=== PATIENT | female | born 1995 | race Two or more races ===

== ENCOUNTER 2022-05-20 10:43 | Inpatient (IN) | payer OTHER ==
[~2022-05-20] VITALS: Ht 160 cm; Wt 87.3 kg
[2022-05-20] MEDS ORDERED: ONDANSETRON HCL 4 MG/2 ML VIAL IV ONE (11:30)
[2022-05-20] MEDS ORDERED: PANTOPRAZOLE 40 MG/10 ML VIAL INJ IV ONE (11:30)
[2022-05-20] MEDS ORDERED: SODIUM CHLORIDE 0.9% 1,000 ML IVB ONE (11:30)
[2022-05-20] MEDS ORDERED: MORPHINE SULFATE 4 MG/ML SYR/VIAL IV ONE (11:30)
[2022-05-20 11:47] LABS: Hematocrit 41.3 % (36.0-46.0); Hemoglobin 14.1 g/dL (12.2-16.2); Mean Corpuscular Hemoglobin 32.2 pg (28.0-32.0); Mean Corpuscular Hgb Conc. 34.1 g/dL (32.0-36.0); Mean Corpuscular Volume 94.2 fL (80.0-100.0); Red Blood Cells 4.38 10^6/uL (4.0-5.20); Red Cell Distribution Width 12.5 % (11.8-14.3); White Blood Cell 8.1 10^3/uL (4.4-10.8)
[2022-05-20 12:05] LABS: Albumin 4.2 g/dL (3.4-5.0); Calcium 9.4 mg/dL (8.5-10.1); Magnesium 2.2 mg/dL (1.6-2.6); Potassium 3.7 mmol/L (3.5-5.1)
[2022-05-20 12:08] LABS: BUN/Creatinine Ratio 26.6; Bilirubin, Total 0.3 mg/dL (0.2-1.0); Total Protein 7.8 g/dL (6.4-8.2)
[2022-05-20 12:10] LABS: Basophils % (manual) 0 (0.0-2.0); Blast Cells 0; Metamyelocytes % 0; Myelocytes % 0; Promyelocytes % 0; Reactive Lymphocytes 0
[2022-05-20 12:19] LABS: Urine Bacteria NONE SEEN /hpf (None Seen); Urine Blood 1+ /uL (Negative); Urine Mucus FEW (None Seen); Urine Specific Gravity 1.018 (1.001-1.035); Urine WBC 2 /hpf (0 - 5)
[2022-05-20 14:03] LABS: Band Neutrophils % (manual) 4; Eosinophils % (manual) 2 (0-7); Lymphocytes % (manual) 25 (10.0-50.0); Monocytes % (manual) 13 (0-12)
[2022-05-20] MEDS ORDERED: ONDANSETRON HCL 4 MG/2 ML VIAL IV PRN (16:45)
[2022-05-20] MEDS ORDERED: DOCUSATE SOD 100 MG CAP PO PRN (16:45)
[2022-05-20] MEDS: SODIUM CHLORIDE 0.9% 1,000 ML IV SCH (19:45)
[2022-05-20] MEDS ORDERED: hydrALAZINE HCL 20 MG/ML VL IV PRN (19:45)
[2022-05-20] MEDS: cefOXitin 2GM/100ML 100 ML IV SCH (21:49)
[2022-05-20] MEDS ORDERED: ATORVASTATIN 20 MG TAB PO SCH (22:00)
[2022-05-20] MEDS: MORPHINE SULFATE INJ 2 MG/ml SYRG IV PRN (23:08)
[2022-05-21] MEDS: SODIUM CHLORIDE 0.9% 1,000 ML IV SCH ×3 (01:05→22:23)
[2022-05-21 01:27] VITALS: BP 152/94
[2022-05-21 04:00] VITALS: BP 125/74
[2022-05-21] MEDS: cefOXitin 2GM/100ML 100 ML IV SCH ×3 (06:12→22:21)
[2022-05-21 06:14] LABS: INR 1.07 (0.9-1.15); Partial Thromboplastin Time 31.4 sec (24.6-33.4)
[2022-05-21 06:16] LABS: Basophils # (auto) 0 10 ^3/uL (0-0.2); Basophils % (auto) 0.6 % (0.0-2.0); Eosinophils # (auto) 0 10 ^3/uL (0-0.8); Eosinophils % (auto) 0.5 % (0.0-7.0); Hemoglobin 12.8 g/dL (12.2-16.2); Lymphocytes # (auto) 2.7 10 ^3/uL (0.4-5.4); Lymphocytes % (auto) 33.7 % (10.0-50.0); Mean Corpuscular Hgb Conc. 35.5 g/dL (32.0-36.0); Mean Corpuscular Volume 92.8 fL (80.0-100.0); Monocytes # (auto) 0.8 10 ^3/uL (0-1.3); Monocytes % (auto) 10.6 % (0.0-12.0); Neutrophils # (auto) 4.3 10 ^3/uL (1.6-8.6); Neutrophils % (auto) 54.6 % (37.0-80.0); Red Blood Cells 3.88 10^6/uL (4.0-5.20); Red Cell Distribution Width 12.5 % (11.8-14.3); White Blood Cell 7.9 10^3/uL (4.4-10.8)
[2022-05-21 06:19] LABS: Potassium 3.3 mmol/L (3.5-5.1)
[2022-05-21 06:23] LABS: Albumin 3.4 g/dL (3.4-5.0); BUN/Creatinine Ratio 18.8; Calcium 8.8 mg/dL (8.5-10.1)
[2022-05-21 06:32] LABS: Bilirubin, Total 0.6 mg/dL (0.2-1.0); Total Protein 6.7 g/dL (6.4-8.2)
[2022-05-21 09:00] VITALS: BP 133/79
[2022-05-21] MEDS: LISINOPRIL 10 MG TAB PO SCH (10:14)
[2022-05-21] MEDS: PANTOPRAZOLE 40 MG/10 ML VIAL INJ IV SCH (10:14)
[2022-05-21 13:00] VITALS: BP 127/78
[2022-05-21 14:44] LABS: Cholesterol 243 mg/dL (< 200); HDL Cholesterol 38 mg/dL (40-59); LDL Cholesterol 193 mg/dL (< 100); Triglycerides 152 mg/dL (< 150)
[2022-05-21 17:00] VITALS: BP 105/56
[2022-05-21] MEDS ORDERED: cefTRIAXone 1GM/50ML D5W 0 ML IV ONE (17:09)
[2022-05-21 22:00] VITALS: BP 120/72
[2022-05-22] MEDS: SODIUM CHLORIDE 0.9% 1,000 ML IV SCH ×3 (02:05→18:46)
[2022-05-22 05:00] VITALS: BP 127/80
[2022-05-22] MEDS: cefOXitin 2GM/100ML 100 ML IV SCH ×3 (05:35→22:16)
[2022-05-22 09:00] VITALS: BP 157/97
[2022-05-22] MEDS: PANTOPRAZOLE 40 MG/10 ML VIAL INJ IV SCH (10:10)
[2022-05-22] MEDS: LISINOPRIL 10 MG TAB PO SCH (10:10)
[2022-05-22] MEDS: MORPHINE SULFATE INJ 2 MG/ml SYRG IV PRN ×2 (11:28→15:25)
[2022-05-22 17:00] VITALS: BP 165/98
[2022-05-22] MEDS: HYDROmorphone HCL 2 MG/ML VL/or syr IV PRN ×2 (18:23→22:24)
[2022-05-22 22:00] VITALS: BP 164/97
[2022-05-23] MEDS: HYDROmorphone HCL 2 MG/ML VL/or syr IV PRN ×5 (04:31→23:00)
[2022-05-23 04:49] VITALS: BP 115/96
[2022-05-23] MEDS: SODIUM CHLORIDE 0.9% 1,000 ML IV SCH ×3 (05:23→19:45)
[2022-05-23] MEDS: cefOXitin 2GM/100ML 100 ML IV SCH ×3 (05:32→23:05)
[2022-05-23 09:00] VITALS: BP 137/79
[2022-05-23] MEDS: LISINOPRIL 10 MG TAB PO SCH (10:00)
[2022-05-23] MEDS: PANTOPRAZOLE 40 MG/10 ML VIAL INJ IV SCH (10:01)
[2022-05-23 13:00] VITALS: BP 147/80
[2022-05-23 17:00] VITALS: BP 108/67
[2022-05-23 21:44] VITALS: BP 131/78
[2022-05-24] MEDS: SODIUM CHLORIDE 0.9% 1,000 ML IV SCH ×3 (04:05→13:43)
[2022-05-24 04:47] VITALS: BP 135/83
[2022-05-24 06:41] LABS: Albumin 3.3 g/dL (3.4-5.0); Calcium 8.6 mg/dL (8.5-10.1); Potassium 3.4 mmol/L (3.5-5.1)
[2022-05-24 06:44] LABS: BUN/Creatinine Ratio 21.1
[2022-05-24 06:46] LABS: Bilirubin, Total 0.7 mg/dL (0.2-1.0); Total Protein 6.9 g/dL (6.4-8.2)
[2022-05-24] MEDS: cefOXitin 2GM/100ML 100 ML IV SCH ×3 (06:46→13:45)
[2022-05-24 06:48] LABS: Basophils # (auto) 0 10 ^3/uL (0-0.2); Basophils % (auto) 0.4 % (0.0-2.0); Eosinophils # (auto) 0.1 10 ^3/uL (0-0.8); Eosinophils % (auto) 0.9 % (0.0-7.0); Hematocrit 36.9 % (36.0-46.0); Hemoglobin 12.5 g/dL (12.2-16.2); Lymphocytes # (auto) 2.2 10 ^3/uL (0.4-5.4); Lymphocytes % (auto) 32.2 % (10.0-50.0); Mean Corpuscular Hemoglobin 32.1 pg (28.0-32.0); Mean Corpuscular Volume 94.4 fL (80.0-100.0); Monocytes # (auto) 0.7 10 ^3/uL (0-1.3); Monocytes % (auto) 10.2 % (0.0-12.0); Neutrophils # (auto) 3.9 10 ^3/uL (1.6-8.6); Neutrophils % (auto) 56.3 % (37.0-80.0); Red Cell Distribution Width 12.2 % (11.8-14.3); White Blood Cell 6.9 10^3/uL (4.4-10.8)
[2022-05-24] MEDS ORDERED: BUPIVACAINE W/ EPINEPH 0.25% INJ 50ML MDV ONE ×2 (08:34→08:36)
[2022-05-24] MEDS ORDERED: LIDOCAINE 1%-Mpf/Epinephrine 1:200,000 ONE (08:36)
[2022-05-24] MEDS ORDERED: IOHEXOL 300 MG/ML 100ML BOTTLE IJ ONE (08:43)
[2022-05-24 09:00] VITALS: BP 113/61
[2022-05-24] MEDS ORDERED: ceFAZolin 1GM/50ML 100 ML IV ONE (09:00)
[2022-05-24] MEDS ORDERED: MEPERIDINE HCL (50 MG/ML) 1 ML VIAL ONE (09:07)
[2022-05-24] MEDS ORDERED: fentaNYL CITRATE 100 MCG/2 ML VL ONE ×2 (09:07→10:46)
[2022-05-24] MEDS ORDERED: MIDAZOLAM HCL 2MG/2ML 2ml VIAL (1mg/ml) ONE (09:08)
[2022-05-24] MEDS: LISINOPRIL 10 MG TAB PO SCH (10:00)
[2022-05-24] MEDS ORDERED: DexAMETHasone SOD PHOS 10MG/1ML VIAL INJ ONE (10:10)
[2022-05-24] MEDS ORDERED: ONDANSETRON HCL 4 MG/2 ML VIAL ONE (10:10)
[2022-05-24] MEDS ORDERED: ETOMIDATE (2MG/ML) 20ML VIAL IV ONE (10:10)
[2022-05-24] MEDS ORDERED: SUGAMMADEX 200mg/2ml Vial (100MG/ML) IV ONE (11:31)
[2022-05-24] MEDS: HYDROmorphone HCL 2 MG/ML VL/or syr IV PRN ×3 (12:47→23:11)
[2022-05-24 14:41] LABS: Hepatitis C Antibody Negative (Negative)
[2022-05-24 17:00] VITALS: BP 128/85
[2022-05-24 22:00] VITALS: BP 134/75
[2022-05-25 05:00] VITALS: BP 119/75
[2022-05-25] MEDS: SODIUM CHLORIDE 0.9% 1,000 ML IV SCH ×3 (05:05→21:45)
[2022-05-25] MEDS: cefOXitin 2GM/100ML 100 ML IV SCH ×2 (05:47→14:40)
[2022-05-25 06:52] LABS: Basophils # (auto) 0 10 ^3/uL (0-0.2); Basophils % (auto) 0.1 % (0.0-2.0); Eosinophils # (auto) 0 10 ^3/uL (0-0.8); Hematocrit 36.8 % (36.0-46.0); Hemoglobin 12.7 g/dL (12.2-16.2); Lymphocytes # (auto) 1.4 10 ^3/uL (0.4-5.4); Lymphocytes % (auto) 16.4 % (10.0-50.0); Mean Corpuscular Hemoglobin 32.4 pg (28.0-32.0); Mean Corpuscular Hgb Conc. 34.6 g/dL (32.0-36.0); Mean Corpuscular Volume 93.8 fL (80.0-100.0); Monocytes # (auto) 0.7 10 ^3/uL (0-1.3); Monocytes % (auto) 8.4 % (0.0-12.0); Neutrophils # (auto) 6.3 10 ^3/uL (1.6-8.6); Neutrophils % (auto) 75.1 % (37.0-80.0); Red Blood Cells 3.92 10^6/uL (4.0-5.20); Red Cell Distribution Width 12.5 % (11.8-14.3); White Blood Cell 8.4 10^3/uL (4.4-10.8)
[2022-05-25 06:57] LABS: Albumin 3.4 g/dL (3.4-5.0); BUN/Creatinine Ratio 27.7; Calcium 9.4 mg/dL (8.5-10.1)
[2022-05-25 07:00] LABS: Bilirubin, Total 0.5 mg/dL (0.2-1.0); Total Protein 6.6 g/dL (6.4-8.2)
[2022-05-25 09:00] VITALS: BP 128/70
[2022-05-25] MEDS: LISINOPRIL 10 MG TAB PO SCH (10:45)
[2022-05-25] MEDS: HYDROmorphone HCL 2 MG/ML VL/or syr IV PRN (10:47)
[2022-05-25 13:00] VITALS: BP 144/81
[2022-05-25 17:00] VITALS: BP 125/77
[2022-05-25] MEDS ORDERED: HYDROcodone-ACET 5/325MG TAB PO PRN (18:00)
[2022-05-25] MEDS: CEPHALEXIN 250 MG CAP PO SCH (21:57)
[2022-05-25 22:00] VITALS: BP 133/78
[2022-05-26] MEDS: HYDROmorphone HCL 2 MG/ML VL/or syr IV PRN ×2 (00:51→09:11)
[2022-05-26 04:47] VITALS: BP 130/81
[2022-05-26] MEDS: SODIUM CHLORIDE 0.9% 1,000 ML IV SCH (05:16)
[2022-05-26] MEDS: CEPHALEXIN 250 MG CAP PO SCH (05:16)
[2022-05-26 06:13] LABS: Basophils # (auto) 0 10 ^3/uL (0-0.2); Basophils % (auto) 0.6 % (0.0-2.0); Eosinophils # (auto) 0 10 ^3/uL (0-0.8); Eosinophils % (auto) 0.7 % (0.0-7.0); Hematocrit 34.9 % (36.0-46.0); Hemoglobin 12.4 g/dL (12.2-16.2); Lymphocytes # (auto) 2.6 10 ^3/uL (0.4-5.4); Lymphocytes % (auto) 39.1 % (10.0-50.0); Mean Corpuscular Hgb Conc. 35.4 g/dL (32.0-36.0); Mean Corpuscular Volume 93.5 fL (80.0-100.0); Monocytes # (auto) 0.6 10 ^3/uL (0-1.3); Monocytes % (auto) 9.6 % (0.0-12.0); Neutrophils # (auto) 3.3 10 ^3/uL (1.6-8.6); Nucleated Red Blood Cells % 0.1 %; Red Blood Cells 3.74 10^6/uL (4.0-5.20); Red Cell Distribution Width 12.3 % (11.8-14.3); White Blood Cell 6.6 10^3/uL (4.4-10.8)
[2022-05-26 09:00] VITALS: BP 147/93
[2022-05-26 09:26] LABS: Albumin 3.6 g/dL (3.4-5.0); Calcium 8.8 mg/dL (8.5-10.1); Potassium 3.3 mmol/L (3.5-5.1)
[2022-05-26 09:29] LABS: BUN/Creatinine Ratio 19.3; Bilirubin, Total 0.6 mg/dL (0.2-1.0); Total Protein 6.7 g/dL (6.4-8.2)
[2022-05-26] MEDS ORDERED: CEPH-510 PO (10:31)
[2022-05-26] MEDS ORDERED: POTASSIUM CHL 20 Meq TABLET PO ONE (10:45)
[2022-05-26 10:54] VITALS: BP 128/70
[2022-05-26] MEDS: LISINOPRIL 10 MG TAB PO SCH (10:58)
== END 2022-05-26 12:07 | disposition home or self-care (01) | DRG 263 ==
LOC: ER 10:43 → OVERFLOW 16:39 → WEST WING 23:38 → TELE-WESTW 05-21 00:29 → WEST WING 05-26 01:31
PROVIDERS: ADMIT Nurse Practitioner Family; ATTEND Nurse Practitioner Acute Care
PROC: 0FT44ZZ Resection of Gallbladder, Percutaneous Endoscopic Approach (ICD-10-PCS; principal; 2022-05-24 09:31)
DX: K80.00 Calculus of gallbladder with acute cholecystitis without obstruction (principal); K76.0 Fatty (change of) liver, not elsewhere classified; E11.65 Type 2 diabetes mellitus with hyperglycemia; E78.5 Hyperlipidemia, unspecified; I16.0 Hypertensive urgency; Z20.822 Contact with and (suspected) exposure to COVID-19; I10 Essential (primary) hypertension; E66.9 Obesity, unspecified; Z68.32 Body mass index [BMI] 32.0-32.9, adult; Z83.3 Family history of diabetes mellitus; Z82.49 Family history of ischemic heart disease and other diseases of the circulatory system; R74.01 Elevation of levels of liver transaminase levels
CPT/HCPCS: 36415; 71045; 74181; 76705; 80053; 80061; 81001; 81025; 83036; 83690; 83735; 84702; 85007; 85025; 85027; 85610; 85730; 86803; 86850; 86900; 86901; 87340; 87426; 93005; 96361; 96374; 96375; C9113; G0378; J0690; J0694; J0696; J1100; J2250; J2405